=== PATIENT | male | born 1955 | race Caucasian/White ===

== ENCOUNTER 2018-08-07 15:16 | Day surgery (SDC) | payer MEDICARE, OTHER ==
[2018-08-07] MEDS ORDERED: LR 1,000 ML IV ONE (15:39)
[2018-08-07] MEDS ORDERED: BUPIVACAINE 0.5% 30 ML SDV ONE (15:50)
[2018-08-07] MEDS ORDERED: LIDOCAINE 2% 5 ML SDV ONE (15:51)
[2018-08-07] MEDS ORDERED: ceFAZolin 1 GM/5 ML SYR ONE (15:51)
[2018-08-07] MEDS ORDERED: CEFAZOLIN 2 GM/DEXTROSE/100 ML BAG IV ONE (17:46)
[2018-08-07] MEDS ORDERED: ceFAZolin 2 GM/DEXTROSE 100 ML IV ONE (17:46)
--- NOTE | 2018-08-07 17:49 | PDANEPAE ---
ANE History of Present Illness L great toe MTP joint implant for DJD ANE Past Medical History - Cardiovascular History Hx Hypertension: No Hx Arrhythmias: No Hx Chest Pain: No Hx Coronary Artery / Peripheral Vascular Disease: No Hx CHF / Valvular Disease: No Hx Palpitations: No - Pulmonary History Hx COPD: No Hx Asthma/Reactive Airway Disease: No Hx Recent Upper Respiratory Infection: No Hx Oxygen in Use at Home: No Hx Sleep Apnea: No - Neurologic History Hx Cerebrovascular Accident: No Hx Seizures: No Hx Dementia: No - Endocrine History Hx Diabetes: No - Renal History Hx Renal Disorders: No - Liver History Hx Hepatic Disorders: No - Neurological & Psychiatric Hx Hx Neurological and Psychiatric Disorders: No - Cancer History Hx Cancer: No - Congenital Disorder History Hx Congenital Disorders: No - GI History Hx Gastrointestinal Disorders: No - Surgical History Prior Surgeries: sinus. tonsils ANE Review of Systems Review of Systems: - Exercise capacity METS (RN): 6 METS ANE Patient History - Allergies Allergies/Adverse Reactions: No Known Allergies Allergy (Unverified 08/07/18 15:31) - Home Medications Home medications: home medication list seen and reviewed - NPO status NPO Status: no food or drink >8 hours NPO Since - Liquids (Date): 08/07/18 NPO Since - Liquids (Time): 06:00 NPO Since - Solids (Date): 08/07/18 NPO Since - Solids (Time): 06:00 - Anes Hx Anes Hx: no prior problems - Smoking Hx Smoking Status: Never smoked - Alcohol Use Alcohol Use: Occasionally - Family Anes Hx Family Anes Hx: none Family Hx Anesthesia Complications: none ANE Labs/Vital Signs - Labs - CBC WBC: reviewed and okay - Vital Signs Blood Pressure: 142/90 Heart Rate: 86 Respiratory Rate: 16 O2 Sat (%): 95 Height: 177.8 cm Weight: 86.183 kg ANE Physical Exam - Airway Neck exam: FROM Mallampati Score: Class 2 Mouth exam: normal dental/mouth exam - Pulmonary Pulmonary: no respiratory distress - Cardiovascular Cardiovascular: regular rate and rhythym - ASA Status ASA Status: I ANE Anesthesia Plan Anesthesia Plan: GA with mask Total IV Anesthesia: Yes
--- NOTE | 2018-08-07 17:50 | PDHPUP ---
History & Physical Update H&P update statement: This history and physical update is based on an assessment of the patient which was completed after admission or registration (within 24 hours), but prior to the surgery/procedure. H&P update: H&P reviewed & patient examined, no change in patient's condition since H&P completed
[2018-08-07] MEDS ORDERED: fentaNYL 100 MCG/2 ML INJ ONE (17:57)
[2018-08-07] MEDS ORDERED: PROPOFOL/EMULSION 500 MG/50 ML BOTTLE IV ONE ×2 (17:57→18:36)
[2018-08-07] MEDS ORDERED: NALOXONE HCL 0.4 MG/ML INJ IVP PRN (19:18)
[2018-08-07] MEDS ORDERED: ONDANSETRON 4 MG/2 ML VIAL IVP PRN (19:18)
[2018-08-07] MEDS ORDERED: PROMETHAZINE HCL 25 MG/ML INJ IVP PRN (19:18)
[2018-08-07] MEDS ORDERED: DEXAMETHASONE 4 MG/ML VIAL IVP PRN (19:18)
[2018-08-07] MEDS ORDERED: LABETALOL HCL 5 MG/ML 20 ML MDV IVP PRN (19:18)
[2018-08-07] MEDS ORDERED: fentaNYL 100 MCG/2 ML INJ IVP PRN (19:18)
[2018-08-07] MEDS ORDERED: oxyCODONE IR 5 MG TAB PO PRN (19:18)
[2018-08-07] MEDS ORDERED: PHENYLEPHRINE HCL 100 MCG/ML SYR IVP PRN (19:18)
[2018-08-07] MEDS ORDERED: HYDROCODONE/APAP 5/325 TAB PO PRN (19:18)
[2018-08-07] MEDS ORDERED: ALBUTEROL 3 ML DEYVIAL IH PRN (19:18)
[2018-08-07] MEDS ORDERED: METOCLOPRAMIDE 10 MG/2 ML VIAL IVP PRN (19:18)
[2018-08-07] MEDS ORDERED: LR 500 ML IV PRN (19:18)
[2018-08-07] MEDS ORDERED: ACETAMINOPHEN 500 MG TAB PO PRN (19:18)
[2018-08-07] MEDS ORDERED: MEPERIDINE 25 MG/0.5 ML AMP IVP PRN (19:18)
--- NOTE | 2018-08-07 19:39 | POSTOPPROG ---
Post Op Note Date of Operation: 08/07/18 Surgeon: Maddy Judd Anesthesiologist: Dr. Hansen Anesthesia: IV Sedation (LMAC w/ 25 cc 0.5% Marcaine plain and 5 cc 2% Lidocaine plain.) Pre-op Diagnosis: Left foot Hallux Rigidus with loose bodies Post-op Diagnosis: Left foot Hallux Rigidus with loose bodies Indication: Painful arthritic 1st MPJ left foot Procedure: Left 1st metatarsophalangeal joint fusion with excision of loose bodies Findings: loose bodies in 1st MPJ, end stage arthritis 1st MPJ Inf/Abcess present in the surg proc area at time of surgery?: No Depth: Deep Incisional (Fascial) EBL: PAT @225 mmHg 68 minutes Complications: None Clean Closure Performed: Yes
[2018-08-07 21:03] VITALS: BP 130/4
--- NOTE | 2018-08-08 06:40 | GOP ---
[f rep st] OPERATIVE REPORT DATE OF OPERATION: 08/07/2018 SURGEON: Maddy Judd DPM ANESTHESIA: Local with monitored anesthesia care. ANESTHESIOLOGIST: Dr. Hansen. PREOPERATIVE DIAGNOSIS: Left foot hallux rigidus. POSTOPERATIVE DIAGNOSIS: Left foot hallux rigidus. PROCEDURE PERFORMED: Left 1st metatarsophalangeal joint arthrodesis. FINDINGS: ESTIMATED BLOOD LOSS: Minimal. DESCRIPTION OF PROCEDURE: Under mild sedation, the patient was brought into the operating room, [facility] on the operating table in supine position. Following IV sedation, local anesthesia was obtained a bout the left foot using 15 cc of 0.5% Marcaine plain and 5 cc of 2% lidocaine plain. The foot was t hen scrubbed, prepped, and draped in the usual aseptic manner. A sterile pneumatic ankle tourniquet was placed over the left ankle. The foot was exsanguinated and tourniquet inflated to 225 mmHg. Att ention was then directed to the left 1st metatarsophalangeal joint where an incision was made medial and parallel to the tendon of the extensor hallucis longus. The incision was deepened through subcut aneous tissue with care taken to identify and retract all vital neurovascular structures. All bleede rs were cauterized as necessary. A linear 1st metatarsophalangeal joint capsulotomy was then performed, and the periosteum and capsule were reflected medially and laterally to expose the 1st metatarsophalangeal joint at the operative s ite. There were loose bodies noted medially and dorsally, which were removed with sharp and blunt di ssection. A McGlamry elevator was used to free up the joint as it was locked in a plantar flexed pos ition. The loose bodies were all removed and bone spurs debrided with the rongeur. The guidewire fo r the reamers was then inserted into the 1st metatarsal head and the conical reamer used to debride t he remaining articular cartilage down to the subchondral plate. Loose bodies were removed with a nick geur. The same was performed at the proximal phalanx of the hallux where the guidewire was used and the reamer used. Osteophytes were debrided. The wound was irrigated with copious sterile saline, An cef irrigation. Subchondral fenestration was then performed using the K-wire into the 1st metatarsal head and the base of the proximal phalanx. This was done to help promote arthrodesis and break up t he subchondral plate. At this point, the 1st metatarsophalangeal joint was placed into appropriate position and temporarily fixated with a K-wire. The plate was then placed dorsally and the template used to place a K-wire f rom dorsal to plantar where it would be reamed for the lag screw. The template was removed and the r eamer used to create a defect for the plate. Once the area was reamed, the wound was then again irri gated. The plate was then placed and temporarily fixated with K-wires. Proximal locking and nonlock ing screws were placed. The lag screw was then placed through the plate and into the proximal phalan x of the hallux. Distal nonlocking screws were then placed. Apposition was evaluated under fluorosc opy and found to be in good position. The wound was again irrigated. The periosteum and capsule were repaired with 3-0 Vicryl. The subcut icular layer was repaired with 4-0 Monocryl and the skin with 4-0 Prolene in horizontal suture techni que. The incision was dressed with Xeroform, 4 x 4 gauze, Abigail, cast padding, posterior splint, and an Otis wrap. The tourniquet was deflated at 68 minutes and a prompt hyperemic response was noted to all digits of the left foot. The patient was then transferred to the recovery room with vital signs stable and vascular status int act. Following a period of postoperative monitoring, the patient will be discharged home, advised to ice and elevate his foot. He is asked to keep the dressing clean, dry, and intact. He will follow up with me next week for wound check and dressing change. INJECTABLES: Preop injection of 15 cc of 0.5% Marcaine plain and 5 cc of 2% lidocaine plain. Postop injection of 10 cc of 0.5% Marcaine plain. MATERIALS: Jeanmarie 1st MPJ fusion plate with locking and nonlocking screws. HEMOSTASIS: Pneumatic ankle tourniquet at 225 mmHg for 68 minutes. /[id number]/MODL
== END 2018-08-07 20:50 | disposition home or self-care (01) ==
LOC: FSGY 15:16
PROVIDERS: ATTEND Podiatrist Foot & Ankle Surgery
DX: M20.22 Hallux rigidus, left foot (principal); M24.075 Loose body in left toe joint(s); R73.03 Prediabetes
CPT/HCPCS: C1713; J0690; J2704; J3010

== ENCOUNTER → 2018-09-12 | Outpatient (CLI) | payer OTHER | LOC: BMCIMAGING 12:55 | PROVIDERS: ATTEND Podiatrist Foot & Ankle Surgery | DX: Z09 Encounter for follow-up examination after completed treatment for conditions other than malignant neoplasm (principal) ==

== ENCOUNTER → 2018-10-03 | Outpatient (CLI) | payer OTHER | LOC: BMCIMAGING 12:23 | PROVIDERS: ATTEND Podiatrist Foot & Ankle Surgery | DX: Z09 Encounter for follow-up examination after completed treatment for conditions other than malignant neoplasm (principal) ==